=== PATIENT | male | born 1980 | race Caucasian/White ===

== ENCOUNTER 2019-03-20 19:24 | Emergency (ER) | payer OTHER ==
[~2019-03-20] VITALS: Ht 180.3 cm; Wt 83.9 kg
[2019-03-20] MEDS ORDERED: LIDOCAINE/EPI 2% 1:100,00 (XYLOCAINE) 20 ML VIAL ONE (19:31)
--- NOTE | 2019-03-20 19:50 | NUR ---
PT. REPORTED HE WAS DRIVING A FENCE POST HIT A ROCK AND THE FENCE [place] PICKER BOUNCED BACK AND HIT HIM IN THE HEAD. NO LOC. LACERATION IS 4.9 CM AND WAS BLEEDING.
--- NOTE | 2019-03-20 20:10 | ED Head Injury ---
General Chief Complaint: Laceration Stated Complaint: HEAD LACERATION Source: patient History of Present Illness Date Seen by Provider: Mar 20, 2019 Time Seen by Provider: 19:25 Initial Comments 38-year-old male presenting with complaints of laceration to the left forehead. He had been working on a fence and was using a post hole class a truck driver and it kicked back and struck him in the head. He reports being dazed but denies having any loss of consciousness. He denies any change in his vision. He has had no drainage from his nose or ears. He had the incident happened just prior to arriving in the emergency department. He states he is not up-to-date on his tetanus vaccination. Allergies and Home Medications Allergies Coded Allergies: No Known Drug Allergies (Unverified , 03/20/19) Patient Home Medication List Home Medication List Reviewed: Yes Review of Systems Review of Systems Constitutional: No chills, No fever Eyes: See HPI Ears, Nose, Mouth, Throat: see HPI Respiratory: no symptoms reported Cardiovascular: no symptoms reported Gastrointestinal: no symptoms reported; No nausea, No vomiting Genitourinary: no symptoms reported Musculoskeletal: No muscle weakness, No neck pain Skin: see HPI, other (forehead/scalp laceration with pain to the area) Psychiatric/Neurological: Headache (around the site of wound); Denies Numbness, Denies Tonic Clonic Seizures, Denies Weakness Past [id number] Hx Past Med/Social Hx: Reviewed Nursing Past Med/Soc Hx Patient Social History Recent Foreign Travel: No Contact w/Someone Who Travel: No Recent Infectious Disease Expo: No Physical Abuse: No Sexual Abuse: No Mistreated: No Fear: No Physical Exam Vital Signs Vital Signs - First Documented 03/20/19 19:27 Temp 97.5 Pulse 100 Resp 22 B/P (MAP) 150/104 (119) Pulse Ox 97 O2 Delivery Room Air Capillary Refill : Less Than 3 Seconds Height, Weight, BMI Height: 5'11.00" Weight: 185lbs. oz. 83.268670xl; BMI Method:Stated General Appearance: WD/WN, no apparent distress HEENT: PERRL/EOMI, TMs normal, pharynx normal, other (no hemotympanum, Scalp lac on left frontal scalp area) Neck: non-tender, full range of motion, supple, normal inspection Cardiovascular: normal peripheral pulses, regular rate, rhythm Respiratory: chest non-tender, lungs clear, normal breath sounds Extremities: normal range of motion, non-tender, normal inspection Psychiatric: alert, oriented x 3 Crainal Nerves: normal hearing, normal speech, PERRL Coordination/Gait: normal gait Motor/Sensory: no motor deficit, no sensory deficit Skin: warm/dry, other (scalp laceration on left frontal/temporal area) [place] Coma Score Best Eye Response: (4) Open Spontaneously Best Verbal Response: (5) Oriented Best Motor Response: (6) Obeys Commands [place] Total: 15 Images 1 - scalp laceration Procedures/Interventions Wound Location: Scalp Wound Length (cm): 4.9 Wound's Depth, Shape: sub Q Wound Explored: clean Anesthesia: Lidocaine w/ Epi (2%) Volume Anesthetic (ccs): 9 Staple Repair: Stapler 35W (9 paul) Progress After obtaining verbal consent the patient's wound was anesthetized with 2% lidocaine with epinephrine. Then the wound was cleaned with chlorhexidine and sterile water. There were no foreign bodies visualized. The wound edges were approximated using paul and 9 paul were used to approximate the edges. He tolerated the procedure well without any immediate complications. Counseled on follow-up and return precautions. Progress/Results/Core Measures Results/Orders My Orders Medications Given in ED Vital Signs/I&O Blood Pressure Mean: 119 Progress Progress Note : Progress Note Since patient had no loss of consciousness and was alert oriented to appropriate will cleaning and repair wound. Counseled on follow-up and return precautions of the head injury. Updated tetanus booster. Departure Impression Primary Impression: Laceration of scalp without foreign body Qualified Codes: S01.01XA - Laceration without foreign body of scalp, initial encounter Disposition: 01 HOME, SELF-CARE Condition: Stable Departure-Patient Inst. Decision time for Depature: 20:13 Referrals: NO,LOCAL PHYSICIAN (PCP/Family) Primary Care Physician Patient Instructions: Laceration Repair With [place] (DC), Diphtheria and Tetanus Toxoids, and Acellular Pertussis Vaccine Add. Discharge Instructions: Keep wound clean and dry for first 24 hours. Then may wash normally but do not soak it. Do not submerge your head in water or snorkel where you would get your wound wet as it could break open Sleep with your head elevated to help prevent it from swelling. Use ice 20-30 minutes every few hours as needed to help with pain and swelling. May take acetaminophen or ibuprofen if needed for pain and swelling. May apply antibiotic ointment 2-3 times a day and as needed to help prevent infection Oxford will need to be removed in 7 to 10 days or be seen sooner if having problems or concerns for infection All discharge instructions reviewed with patient and/or family. Voiced understanding. JAN BARRERA MD Mar 20, 2019 20:10
[2019-03-20] MEDS ORDERED: TETANUS,DIPTH,PERTUSS P/F (BOOSTRIX) 0.5 ML VIAL IM ONE (20:15)
[2019-03-20] MEDS ORDERED: LIDOCAINE/EPI 2% 1:200,00 (XYLOCAINE) 10 ML VIAL INJ ONE (20:15)
[2019-03-20 20:26] VITALS: BP 150/104
== END 2019-03-20 20:27 | disposition home or self-care (01) ==
LOC: EDUNIT# 19:24 → ER FS 19:26
DX: S01.01XA Laceration without foreign body of scalp, initial encounter (principal); R40.2142 Coma scale, eyes open, spontaneous, at arrival to emergency department; R40.2252 Coma scale, best verbal response, oriented, at arrival to emergency department; R40.2362 Coma scale, best motor response, obeys commands, at arrival to emergency department; W26.8XXA Contact with other sharp object(s), not elsewhere classified, initial encounter
CPT/HCPCS: 90715; 99284

== ENCOUNTER → 2021-02-18 | Outpatient (CLI) | payer BC, OTHER ==
--- NOTE | 2021-02-18 10:09 | Diagnostic Imaging Report ---
INDICATION: KNEE PAIN, LEFT). HIT BY A COW. TECHNIQUE: 3 views of the left knee CORRELATION STUDY: None FINDINGS: Partial visualization of a longstem intramedullary hortencia and 2 distal fixation screws of the femur. Likely transfix an old femoral shaft fracture. Very mild joint space narrowing medial compartment. Lateral compartment better preserved. Articular surfaces are smooth. No definitive calcified or intraarticular loose body. No lipohemarthrosis. There does appear to be some asymmetric edema but suprapatellar region. IMPRESSION: 1. Negative for acute bony abnormality of the knee. Suspect for suprapatellar soft tissue edema/hematoma. Dictated by: Dictated on workstation # [id number]
== END ==
LOC: RAD FS 09:37
PROVIDERS: ATTEND Nurse Practitioner
DX: M25.562 Pain in left knee (principal)
CPT/HCPCS: 73562